=== PATIENT | male | born 1980 | race Caucasian/White ===

== ENCOUNTER 2020-05-13 09:52 | Day surgery (SDC) | payer MEDICAID ==
[~2020-05-13 09:52] MED LIST: Midazolam 1 MG/ML 2 ML SDV ONE; fentaNYL 100 MCG/2 ML SDV ONE
[2020-05-13] MEDS ORDERED: Midazolam 1 MG/ML 2 ML SDV IV ONE ×9 (09:53→10:58)
[2020-05-13] MEDS ORDERED: fentaNYL 100 MCG/2 ML SDV IV ONE ×3 (09:53→10:51)
[2020-05-13] MEDS ORDERED: Dextrose 5%-0.45% NaCl 1,000 ML IV SCH (10:00)
[2020-05-13] MEDS ORDERED: Ondansetron 4 MG Tab.DIS PO ONE (13:39)
[2020-05-13] MEDS ORDERED: Sodium Chloride 0.9% 1,000 ML IV ONE (13:55)
[2020-05-13] MEDS ORDERED: Ondansetron 4 MG/2 ML SDV IVPUSH ONE (13:57)
[2020-05-13] MEDS ORDERED: Ondansetron 4 MG/2 ML SDV IVPUSH PRN (15:56)
[2020-05-13] MEDS ORDERED: Ibuprofen 400 MG Tab PO PRN (15:57)
[2020-05-13] MEDS: Acetaminophen/oxyCODONE 325-5 MG Tab PO PRN ×2 (16:16→22:21)
[2020-05-13] MEDS: Sodium Chloride 0.9% 1,000 ML IV SCH ×2 (16:23→23:25)
--- NOTE | 2020-05-13 17:33 | OR ---
DATE: 05/13/2020 PREOPERATIVE DIAGNOSIS: Chronic intermittent left-sided abdominal pain. POSTOPERATIVE DIAGNOSIS: Chronic intermittent left-sided abdominal pain. PROCEDURE: Total colonoscopy. ANESTHESIA: Conscious sedation with IV Versed and fentanyl. SPECIMEN: None. OPERATIVE FINDINGS: A few scattered diverticula in the left colon, probably not significant enough, however, to be causing his chronic pain. The rest of the colonoscopy is normal. RECOMMENDATION: Follow up as needed for colonoscopy screening. INDICATION FOR PROCEDURE: This 39-year-old male has chronic left-sided abdominal pain. PROCEDURE IN DETAIL: After adequate preparation, a colonoscope was inserted into the rectum. This was easily passed all the way to the cecum. Confirmation of the cecum was made by visualization of the ileocecal valve, palpation in the right lower quadrant, and by a light shining through the right side. The bowel prep was adequate. On withdrawal of the scope, the only abnormality noted were a few in the range of a dozen small diverticula in the left colon. There is no evidence of inflammation. No evidence of chronic irritation or growths. Anal and rectal examinations are also normal. Air was suctioned from the colon and the scope removed. [facility] /[id number]
--- NOTE | 2020-05-13 20:13 | PCM.SN.2 ---
- Free Text/Narrative Note: This patient had a colonoscopy today but had prolonged nausea, vomiting and headache post procedure. Had 4-5 episodes of vomiting which ended in dry heaves. BP was elevated to 150/120. He is on an anti-hypertensive medication. No abdominal pain. Did not improve on NS bolus of fluid and IV Zofran. Since this patient lives nearly an hour away, I recommended that we admit him for extended SDS observation so that we can monitor his BP, and nausea. He and his are OK with this plan.
[2020-05-14] MEDS: Acetaminophen/oxyCODONE 325-5 MG Tab PO PRN ×2 (04:19→10:30)
--- NOTE | 2020-05-14 08:44 | PCM.SN.2 ---
- Free Text/Narrative Note: Feels better today. Only mild headache. No current nausea or vomiting. Tolerating liquids OK. Can discharge. No special instructions of restrictions.
== END 2020-05-14 12:15 | disposition home or self-care (01) ==
LOC: DL.ENDO 09:52 → UNDOADMOB 15:12 → DL.MS 15:12 → DL.ENDO 05-14 12:15
PROVIDERS: ATTEND Surgery
DX: K57.30 Diverticulosis of large intestine without perforation or abscess without bleeding (principal); R51.9 Headache, unspecified; I10 Essential (primary) hypertension; G89.29 Other chronic pain; Z01.812 Encounter for preprocedural laboratory examination; Z20.822 Contact with and (suspected) exposure to COVID-19; Z88.0 Allergy status to penicillin; Z88.2 Allergy status to sulfonamides; Z88.8 Allergy status to other drugs, medicaments and biological substances; Z79.899 Other long term (current) drug therapy
CPT/HCPCS: 45378; 87635; A9270; J2250; J2405; J3010; J7030; J7042; U0002

== ENCOUNTER 2020-11-11 05:22 | Day surgery (SDC) | payer MEDICAID ==
[2020-11-11] MEDS ORDERED: fentaNYL 100 MCG/2 ML SDV IV ONE ×3 (05:23→06:38)
[2020-11-11] MEDS ORDERED: Midazolam 1 MG/ML 2 ML SDV IV ONE ×3 (05:23→06:39)
[2020-11-11] MEDS ORDERED: Dextrose 5%-0.45% NaCl 1,000 ML IV SCH (06:00)
[2020-11-11] MEDS ORDERED: fentaNYL 100 MCG/2 ML SDV ONE (06:10)
[2020-11-11] MEDS ORDERED: Midazolam 1 MG/ML 2 ML SDV ONE (06:10)
--- NOTE | 2020-11-11 08:08 | OR ---
DATE: 11/11/2020 PROCEDURE: Esophagogastroduodenoscopy and multiple pinch biopsies. INSTRUMENT USED: GIF-HQ190 Olympus video panendoscope. PREMEDICATIONS: No oral or topical anesthesia used. Fentanyl 100 mcg intravenous, Versed 2 mg intravenous, nasal O2 cannula. The procedure was done under pulse oximetry, BP recording, and engine monitor. INDICATION: The patient with longstanding dyspepsia, abdominal pain, and bloating, unexplained and not responsive to medical measures. Esophagogastroduodenoscopy is performed for detection of any active erosive lesions, Guerrero esophagus and/or malignancy also under consideration, H pylori status to be determined, small bowel biopsies to be obtained for celiac disease, endoscopic hemostasis therapy if needed. The scope was passed with ease. Adequate visualization of the esophagus was made from proximal to distal areas. No upper esophageal lesions identified. No distal esophageal stricture. No uphill or downhill esophageal varices. No Coco-Gillette tear. No evidence of erosive esophagitis by [place] criteria. No esophageal polyp or tumor mass identified. Z-line was seen at around 40 cm distal to the oral verge. No proximal gastric varices noted. Gastric fundus examination by retroflexion showed no polypoid lesions. No gastric ulcer, malignant mass, or vascular ectasia identified. Few scattered gastric antral erosions were noted without bleeding from them. Duodenal bulb showed erosion, visualized 2nd part of duodenum was unremarkable. Multiple pinch biopsies, 4 in number were taken from different areas of the 2nd part of the duodenum and tissues were also obtained from the duodenal bulb at 9 o'clock and 12 o'clock position and sent for any histopathologic evidence of celiac disease. Multiple pinch biopsies were also obtained from the gastric and proximal body and sent for PyloriTek test for H pylori and histopathology. No bleeding was noted from any of the visualized areas at the completion of examination. Photographs were taken of duodenal bulb, gastric antrum, fundus, and distal esophagus. IMPRESSION: 1. Duodenal bulb erosion. 2. Gastric antral erosions. 3. The patient tolerated the procedure well. [facility] /[id number]
[2020-11-11] MEDS ORDERED: Losartan 50 MG Tab PO ONE (08:18)
--- NOTE | 2020-11-11 08:37 | LETTER ---
11/11/2020 RE: [place] DUBOIS : 1980 Rosie Martinez PA-C [address] [facility] [address] [place] [address] Dear Ms. Martinez: Mr. Nj Dubois had esophagogastroduodenoscopy done this morning and he tolerated the procedure well. I herewith send a copy of the endoscopy note and photographs for your review. Thank you. Sincerely, [facility] /[id number]
== END 2020-11-11 09:00 | disposition home or self-care (01) ==
LOC: DL.ENDO 05:22
PROVIDERS: ATTEND Internal Medicine Gastroenterology
DX: K29.80 Duodenitis without bleeding (principal); K31.7 Polyp of stomach and duodenum; K25.9 Gastric ulcer, unspecified as acute or chronic, without hemorrhage or perforation; K62.5 Hemorrhage of anus and rectum; E66.09 Other obesity due to excess calories; Z68.32 Body mass index [BMI] 32.0-32.9, adult; I10 Essential (primary) hypertension; E03.9 Hypothyroidism, unspecified; F41.1 Generalized anxiety disorder; Z88.1 Allergy status to other antibiotic agents; Z88.2 Allergy status to sulfonamides
CPT/HCPCS: 43239; 87077; A9270; J2250; J3010; J7042